=== PATIENT | male | born 1955 | race Hispanic/Latino ===

== ENCOUNTER 2017-11-17 18:57 | Emergency (ER) | payer BC ==
[2017-11-17] MEDS ORDERED: ONDANSETRON ODT 4 MG TAB ONE (19:18)
[2017-11-17] MEDS ORDERED: ACETAMINOPHEN EXTRA STRENGTH 500 MG TABLET ONE (19:18)
== END 2017-11-17 21:43 | disposition home or self-care (01) ==
LOC: EDH 18:57
DX: K52.9 Noninfective gastroenteritis and colitis, unspecified (principal); E78.5 Hyperlipidemia, unspecified; Z98.890 Other specified postprocedural states
CPT/HCPCS: 87804

== ENCOUNTER → 2019-12-29 | Outpatient (CLI) | payer BC | END | disposition home or self-care (01) | LOC: RAH 11:57 | PROVIDERS: ATTEND Internal Medicine | DX: M47.816 Spondylosis without myelopathy or radiculopathy, lumbar region (principal); M48.061 Spinal stenosis, lumbar region without neurogenic claudication | CPT/HCPCS: 72110 ==